=== PATIENT | male | born 1980 | race African-American/Black ===

== ENCOUNTER 2019-12-30 | Emergency (ER) | payer BC ==
[~2019-12-30] MED LIST: BACTRIM DS1 TAB OR; BENAZEPRIL10 MG OR; NAPROSYN500 MG OR
[2019-12-30] MEDS ORDERED: TESSALON PERLE100 MG PO (11:58)
[2019-12-30] MEDS ORDERED: TAM75CAP PO (11:58)
== END 2019-12-30 12:17 | disposition home or self-care (01) | DRG 195 ==
DX: J09.X2 Influenza due to identified novel influenza A virus with other respiratory manifestations (principal); R50.9 Fever, unspecified

== ENCOUNTER 2021-07-04 15:02 | Emergency (ER) | payer BC ==
[~2021-07-04 15:02] MED LIST changes: +TAM75CAP PO; +TESSALON PERLE100 MG PO
[2021-07-04] MEDS ORDERED: AMOX/K CLAV875 M1 PO (16:49)
[2021-07-04 17:29] VITALS: BP 160/90
== END 2021-07-04 17:43 | disposition home or self-care (01) | DRG 605 ==
LOC: ED 15:02
DX: S70.372A Other superficial bite of left thigh, initial encounter (principal); I10 Essential (primary) hypertension; W54.0XXA Bitten by dog, initial encounter; Y99.0 Civilian activity done for income or pay